=== PATIENT | female | born 1965 | race Caucasian/White ===

== ENCOUNTER 2019-09-29 14:07 | Emergency (ER) | payer OTHER, SELFPAY ==
[2019-09-29 14:21] VITALS: BP 121/85; PULSE 90; RESP 20; TEMP 36.8; O2SAT 95; BMI 20.9
[2019-09-29 15:03] VITALS: BP 122/82; PULSE 80; O2SAT 96
[2019-09-29 15:03] LABS: Basophils # 0.1 K/mm3 (0-0.2); Basophils % 0.5 % (0.1-2.0); Eosinophils # 0.3 K/mm3 (0.0-0.4); Hematocrit 48.2 % (37.0-47.0); Hemoglobin 16.7 g/dL (12.2-16.2); Lymphocytes # 1.4 K/mm3 (0.7-4.5); Lymphocytes % 11.4 % (10-50); Mean Corpuscular HGB Conc 34.6 g/dL (31.8-35.4); Mean Corpuscular Hemoglobin 32.6 pg (27.0-31.2); Mean Corpuscular Volume 94.2 fl (81-99); Mean Platelet Volume 7.7 fl (7.4-10.4); Monocytes # 0.6 K/mm3 (0.1-1.0); Monocytes % 4.6 % (1.7-9.3); Neutrophils # 10.2 K/mm3 (1.8-7.8); Neutrophils % 81.4 % (37.0-80.0); Platelet Count 354 K/mm3 (142-424); Red Blood Count 5.12 M/mm3 (4.20-5.40); Red Cell Distribution Width 13.5 % (11.5-17.5); White Blood Count 12.6 K/mm3 (4.8-10.8)
--- NOTE | 2019-09-29 15:09 | PC.NURSE ---
kasia from lab called stated that the red and green top had hemolized and that they needed to be redrawed. stated it would be a few before she could come and redraw it or hernan liu could redraw. message was given to hernan
--- NOTE | 2019-09-29 15:28 | CT_ITS ---
PROCEDURE: CT ABDOMEN PELVIS W CON CLINICAL INDICATION: abd pain Generalized abdominal, lower abdominal COMPARISON: No exams were available for comparison TECHNIQUE: IV Contrast: 75ML OPTIRAY 350 Oral Contrast None Axial images obtained with sagittal and coronal reformats. All CT scans at the facility use one or more dose reduction, viz: automated exposure control, ma/kV adjustment per patient size (including targeted exams where dose is matched to indication, i.e. head), or iterative reconstruction technique. FINDINGS: LOWER THORAX: There are centrilobular emphysematous changes. 4 mm noncalcified nodule left lower lobe posteriorly image 5 series 3. 3 mm noncalcified nodule left lower lobe laterally image 8 series 3 ABDOMEN & PELVIS: Prior cholecystectomy with biliary dilatation intra and extrahepatic. Common hepatic duct measures up to 17 mm. No calcified common duct stones are evident. No focal liver lesion apparent. There is moderate thickening of the gastric antrum and pyloric region. Spleen has an unremarkable appearance. The right adrenal gland also appears unremarkable. There is a 1.8 cm hypodense nodule of the left adrenal gland which is indeterminate measuring 28 Hounsfield units. There is mild pancreatic ductal dilatation. No obvious renal calculi. [place] mm hypodensity left kidney which may be due to renal cyst and could be confirmed with ultrasound. There is mild diffuse thickening of the colon throughout consistent with colitis. No evidence of appendicitis or diverticulitis. The uterus is enlarged with a lobular contour and multiple areas of coarse calcification consistent with fibroid involvement. No acute bony findings. IMPRESSION: 1. Three and 5 mm left lower lobe pulmonary nodule. Suggest 6 month follow-up. 2. Prior cholecystectomy with prominent biliary ductal dilatation. Consider MRCP for further evaluation. 3. Mucosal thickening of the antrum of the stomach and pyloric area with low-density changes of the mucosal thickening. Gastritis is considered. Neoplasm could have a similar appearance. Consider upper endoscopy for further evaluation. 4. Mild diffuse thickening of the colon including transverse, descending and sigmoid colon suggesting colitis. 5. Uterine fibroids Dictated by: Wesley Butler MD 09/30/2019 09:23 Electronically signed by Wesley Butler MD in [place] 09/30/2019 09:23
[2019-09-29 16:02] LABS: Microscopic, Urine URINE MICROSCOPIC (MICROSCOPIC)
[2019-09-29 16:04] VITALS: BP 121/78; PULSE 74; RESP 18; O2SAT 92
[2019-09-29 16:05] LABS: Appearance,Urine CLEAR (Clear); Bilirubin,Urine Negative (Negative); Blood, Urine Negative (Negative); Color,Urine YELLOW (Yellow); Glucose,Urine (UA) 3+ (Negative); Ketones,Urine Negative (Negative); Leukocyte Esterase,Urine Negative (Negative); Nitrate,Urine Negative (Negative); PH,Urine 6.5 (5.0-8.5); Protein,Urine Negative (Negative); Urobilinogen,Urine 0.2 EU/dl (0.2)
[2019-09-29 16:13] LABS: Bacteria,Urine Trace /lpf; Squamous Epithelial Cell,Urine Occasional #/hpf (0-5)
--- NOTE | 2019-09-29 16:19 | PC.NURSE ---
lab come to draw blood and stated that they tried 2 times to get it with no success. trying to get a red and green top
[2019-09-29 16:44] VITALS: BP 104/66; PULSE 78; RESP 16; O2SAT 93
[2019-09-29 16:48] LABS: Chloride 102 mmol/L (98-107); Potassium 3.2 mmoL/L (3.5-5.1); Sodium 134 mmol/L (136-145)
[2019-09-29 16:50] LABS: Amylase 55 U/L (30-110); Blood Urea Nitrogen 10 mg/dl (7-17); Creatinine Clearance Estimated 73 mL/min (50-200); Estimated Glomerular Filt Rate 75 ml/min (>60); GFR (African American) 90 ML/MIN (>60)
[2019-09-29 16:51] LABS: Alanine Aminotransferase 13 U/L (12-78); Albumin Level 2.9 g/dl (3.5-5.0); Albumin/Globulin Ratio 1.1 (1.1-1.8); Alkaline Phosphatase 99 U/L (38-126); Anion Gap 9.2 mEq/L (5-15); Aspartate Amino Transferase 21 U/L (14-36); Bilirubin,Total 0.4 mg/dl (0.2-1.3); Calcium 9.2 mg/dl (8.4-10.2); Carbon Dioxide 26 mmol/L (22.0-30.0); Globulin 2.7 g/dL (1.3-3.2); Glucose 123 mg/dl (74-100); Lipase 306 U/L (23-300); Total Protein,Serum 5.6 g/dl (6.3-8.2)
--- NOTE | 2019-09-29 17:17 | PC.NURSE ---
pt back from rad
--- NOTE | 2019-09-29 17:41 | HMH.EDABDPAI ---
ED Disposition Clinical Impression: Abdominal pain Disposition: Home, Self-Care Condition on Discharge: Good Instructions: DI for Acute Abdomen Prescriptions: Dicyclomine HCl [Bentyl 10mg capsule] 20 mg PO QID PRN 10 Days #40 cap PRN Reason: Abdominal Distention Transmission Status: Pending to [id number] Ondansetron [Zofran 4mg ODT] 4 mg PO TID PRN 4 Days #15 tab.rapdis PRN Reason: Nausea Transmission Status: Pending to [id number] Referrals: Lonnie Peters [Primary Care Provider] - - Critical Care Critical Care Time: No Attestation: On 09/29/19, the high probability of a clinically significant, sudden or life threatening deterioration of the following system(s) required my full and direct attention, intervention and personal management. The time I documented below is in addition to time spent performing reported procedures but includes the following listed in this critical care notation. Medical Decision Making - Medical Records Medical records reviewed: Yes: I reviewed the patient's medical records. - Kelvin Inquiry Pt receiving controlled substance: No Vital Signs: 09/29/19 14:21 09/29/19 15:03 09/29/19 16:04 Temperature 98.2 F Temperature Source Oral Pulse Rate [Left Radial] 90 80 74 Respiratory Rate 20 18 Blood Pressure [Left Arm] 121/85 122/82 121/78 Blood Pressure Mean [Left Arm] 97 95 92 Blood Pressure Source [Left Arm] Automatic Cuff Automatic Cuff Automatic Cuff Blood Pressure Position [Left Arm] Supine Supine Supine 02 Sat by Pulse Oximetry 95 96 92 L Oxygen Delivery Method Room Air Room Air Room Air 09/29/19 16:44 Temperature Temperature Source Pulse Rate [Left Radial] 78 Respiratory Rate 16 Blood Pressure [Left Arm] 104/66 L Blood Pressure Mean [Left Arm] 78 Blood Pressure Source [Left Arm] Automatic Cuff Blood Pressure Position [Left Arm] Supine 02 Sat by Pulse Oximetry 93 L Oxygen Delivery Method Room Air - Lab Data Lab results reviewed: Yes: I reviewed the patient's lab results. Lab Results 09/29/19 14:55: WBC 12.6 H, RBC 5.12, Hgb 16.7 H, Hct 48.2 H, MCV 94.2, MCH 32.6 H, MCHC 34.6, RDW 13.5, Plt Count 354, MPV 7.7, Neut % (Auto) 81.4 H, Lymph % (Auto) 11.4, [place] % (Auto) 4.6, Eos % (Auto) 2.0, Baso % (Auto) 0.5, Neut # (Auto) 10.2 H, Lymph # (Auto) 1.4, [place] # (Auto) 0.6, Eos # (Auto) 0.3, Baso # (Auto) 0.1 09/29/19 15:20: Urine Color Yellow, Urine Appearance Clear, Urine pH 6.5, Ur Specific [place] 1.010, Urine Protein Negative, Urine Glucose (UA) 3+, Urine Ketones Negative, Urine Blood Negative, Urine Nitrate Negative, Urine Bilirubin Negative, Urine Urobilinogen 0.2, Ur Leukocyte Esterase Negative, Urine RBC None, Urine WBC 3-5, Ur Squamous Epith Cells Occasional, Urine Bacteria Trace 09/29/19 16:35: Sodium 134 L, Potassium 3.2 L, Chloride 102, Carbon Dioxide 26, Anion Gap 9.2, BUN 10, Creatinine 0.80, Estimated Creat Clear 73, Estimated GFR 75, Est GFR ( Amer) 90, Glucose 123 H, Calcium 9.2, Total Bilirubin 0.4, AST 21, ALT 13, Alkaline Phosphatase 99, Total Protein 5.6 L, Albumin 2.9 L, Globulin 2.7, Albumin/Globulin Ratio 1.1, Amylase 55, Lipase 306 H Result diagrams: 09/29/19 14:55 09/29/19 16:35 Orders (Tests/Meds): ED MEDICATIONS Generic Name Dose Route Start Last Admin Trade Name Freq PRN Reason Stop Dose Admin Sodium Chloride 1,000 mls @ 999 mls/hr 09/29/19 15:30 09/29/19 15:45 Sod Chlor 0.9% 1000ml Bag IV 09/29/19 16:30 999 mls/hr .[id number] MICHAEL Administration Discontinued Medications Generic Name Dose Route Start Last Admin Trade Name Freq PRN Reason Stop Dose Admin Ioversol 75 ml 09/29/19 17:09 09/29/19 17:10 Rad-Optiray 350 100ml Vial IV 09/29/19 17:10 75 ml ONCE ONE Administration Protocol Morphine Sulfate 4 mg 09/29/19 15:45 09/29/19 15:46 Morphine 4mg/Ml Syringe IV 09/29/19 15:46 4 mg ONCE ONE Administration Ondansetron HCl 4 mg 09/29/19 15:46 09/29/19 15
[2019-09-29 17:42] VITALS: BP 109/72; PULSE 75; RESP 18; O2SAT 97
[2019-09-29 18:42] VITALS: BP 123/71; PULSE 78; RESP 16; TEMP 36.6; O2SAT 98
== END 2019-09-29 18:44 | disposition home or self-care (01) ==
PROVIDERS: Emergency Provider Family Medicine; PCP Family Medicine
DX: R10.84 Generalized abdominal pain (principal); E11.9 Type 2 diabetes mellitus without complications; Z79.84 Long term (current) use of oral hypoglycemic drugs; Z79.899 Other long term (current) drug therapy
CPT/HCPCS: 74177; 80053; 81001; 82150; 83690; 85025; 96365; 96375; 99284; J2405; Q9967

== ENCOUNTER 2019-10-02 13:16 | Observation (INO) | payer OTHER, SELFPAY ==
[2019-10-02] VITALS (16 sets, daily range): BP systolic 125–164; BP diastolic 73–106; PULSE 63–136; RESP 16–18; TEMP 36.6–37.1; O2SAT 92–98; BMI 19.3; BMI 19.7
--- NOTE | 2019-10-02 13:56 | XR_ITS ---
PROCEDURE: XR ACUTE ABDOMEN SERIES CLINICAL INDICATION: abd pain Abdominal pain and weakness COMPARISON: No exams were available for comparison FINDINGS: Frontal view of the chest was obtained showing unremarkable cardiovascular structures. No lobar consolidation or collapse is evident. There is minimal blunting of the left CP angle. Upright and supine views of the abdomen demonstrates a mild amount of retained colonic feces. The bowel gas pattern is nonspecific. Are few air-fluid levels on the right. Pelvic clips are present and there are multiple abdominal wall tacks. No acute bony anomalies. IMPRESSION: Small left pleural effusion. Nonspecific bowel gas pattern with a mild amount of retained colonic feces Dictated by: Wesley Butler MD 10/02/2019 15:07 Electronically signed by Wesley Butler MD in [place] 10/02/2019 15:07
[2019-10-02 14:23] LABS: Basophils # 0.1 K/mm3 (0-0.2); Basophils % 0.5 % (0.1-2.0); Eosinophils # 0.2 K/mm3 (0.0-0.4); Eosinophils % 1.1 % (0.1-12.0); Hematocrit 49.2 % (37.0-47.0); Hemoglobin 16.3 g/dL (12.2-16.2); Lymphocytes # 1.1 K/mm3 (0.7-4.5); Lymphocytes % 7.5 % (10-50); Mean Corpuscular HGB Conc 33.2 g/dL (31.8-35.4); Mean Corpuscular Hemoglobin 31.6 pg (27.0-31.2); Mean Corpuscular Volume 95.3 fl (81-99); Monocytes # 1.1 K/mm3 (0.1-1.0); Monocytes % 7.1 % (1.7-9.3); Neutrophils # 12.7 K/mm3 (1.8-7.8); Neutrophils % 83.9 % (37.0-80.0); Platelet Count 386 K/mm3 (142-424); Red Blood Count 5.16 M/mm3 (4.20-5.40); Red Cell Distribution Width 13.6 % (11.5-17.5); White Blood Count 15.2 K/mm3 (4.8-10.8)
[2019-10-02 14:31] LABS: MANUAL DIFFERENTIAL MANUAL DIFFERENTIAL (MANUAL DIFF)
[2019-10-02 14:36] LABS: Chloride 101 mmol/L (98-107); Potassium 3.1 mmoL/L (3.5-5.1); Sodium 136 mmol/L (136-145)
[2019-10-02 14:38] LABS: Amylase 59 U/L (30-110)
[2019-10-02 14:39] LABS: Alanine Aminotransferase 12 U/L (12-78); Albumin Level 3.5 g/dl (3.5-5.0); Albumin/Globulin Ratio 1.3 (1.1-1.8); Alkaline Phosphatase 129 U/L (38-126); Anion Gap 15.1 mEq/L (5-15); Aspartate Amino Transferase 24 U/L (14-36); Bilirubin,Total 0.6 mg/dl (0.2-1.3); Blood Urea Nitrogen 14 mg/dl (7-17); Calcium 9.9 mg/dl (8.4-10.2); Carbon Dioxide 23 mmol/L (22.0-30.0); Creatinine Clearance Estimated 67 mL/min (50-200); Estimated Glomerular Filt Rate 75 ml/min (>60); GFR (African American) 90 ML/MIN (>60); Globulin 2.8 g/dL (1.3-3.2); Glucose 135 mg/dl (74-100); Lipase 117 U/L (23-300); Total Protein,Serum 6.3 g/dl (6.3-8.2)
--- NOTE | 2019-10-02 14:40 | PC.NURSE ---
pt gone to rad
[2019-10-02 14:43] LABS: Lymphocytes % 9 % (10-50); Monocytes % 4 % (2-9); Neutrophils % 87 % (42-76); Platelet Estimate Normal; RBC Morphology Normal; Total Cells Counted 100
[2019-10-02 14:47] LABS: C-Reactive Protein 7.1 mg/L (0-4)
--- NOTE | 2019-10-02 14:50 | PC.NURSE ---
pt back from rad
--- NOTE | 2019-10-02 15:18 | HMH.EDNVD ---
ED Disposition Clinical Impression: CVA, old, alterations of sensations, Encephalomalacia, SIRS (systemic inflammatory response syndrome) Abdominal pain Qualifiers: Abdominal location: epigastric Qualified Code(s): R10.13 - Epigastric pain Disposition: Admitted as Observation Condition on Discharge: Fair Referrals: Lonnie Peters [Primary Care Provider] - - Critical Care Critical Care Time: No Attestation: On 10/02/19, the high probability of a clinically significant, sudden or life threatening deterioration of the following system(s) required my full and direct attention, intervention and personal management. The time I documented below is in addition to time spent performing reported procedures but includes the following listed in this critical care notation. Medical Decision Making - Medical Records Medical records reviewed: Yes: I reviewed the patient's medical records. - Kelvin Inquiry Pt receiving controlled substance: No Vital Signs: 10/02/19 13:17 10/02/19 13:47 10/02/19 14:26 Temperature 98 F Temperature Source Oral Pulse Rate [Left Radial] 111 H 103 H 102 H Respiratory Rate 16 18 Blood Pressure [Left Arm] 134/98 H Blood Pressure [Right Arm] 134/98 H 140/88 Blood Pressure Mean [Left Arm] 110 Blood Pressure Mean [Right Arm] 110 105 Blood Pressure Source [Left Arm] Automatic Cuff Blood Pressure Source [Right Arm] Automatic Cuff Blood Pressure Position [Left Arm] Supine Blood Pressure Position [Right Arm] Sitting Supine 02 Sat by Pulse Oximetry 98 93 L 92 L Oxygen Delivery Method Room Air Room Air Room Air 10/02/19 14:50 10/02/19 15:58 10/02/19 16:07 Temperature Temperature Source Pulse Rate [Left Radial] 109 H 68 94 H Respiratory Rate 18 Blood Pressure [Left Arm] Blood Pressure [Right Arm] 125/80 142/77 H 134/73 Blood Pressure Mean [Left Arm] Blood Pressure Mean [Right Arm] 95 98 93 Blood Pressure Source [Left Arm] Blood Pressure Source [Right Arm] Automatic Cuff Automatic Cuff Automatic Cuff Blood Pressure Position [Left Arm] Blood Pressure Position [Right Arm] Supine Supine Supine 02 Sat by Pulse Oximetry 95 96 96 Oxygen Delivery Method Room Air Room Air Room Air 10/02/19 17:33 10/02/19 18:00 10/02/19 18:30 Temperature Temperature Source Pulse Rate [Left Radial] 63 136 H 106 H Respiratory Rate 18 17 16 Blood Pressure [Left Arm] Blood Pressure [Right Arm] 148/95 H 130/90 153/99 H Blood Pressure Mean [Left Arm] Blood Pressure Mean [Right Arm] 112 103 117 Blood Pressure Source [Left Arm] Blood Pressure Source [Right Arm] Automatic Cuff Automatic Cuff Automatic Cuff Blood Pressure Position [Left Arm] Blood Pressure Position [Right Arm] Supine Supine Supine 02 Sat by Pulse Oximetry 97 95 94 L Oxygen Delivery Method Room Air Room Air Room Air 10/02/19 19:00 10/02/19 19:30 10/02/19 19:44 Temperature Temperature Source Pulse Rate [Left Radial] 103 H 100 H 96 H Respiratory Rate 16 16 16 Blood Pressure [Left Arm] Blood Pressure [Right Arm] 147/95 H 164/105 H 164/106 H Blood Pressure Mean [Left Arm] Blood Pressure Mean [Right Arm] 112 124 125 Blood Pressure Source [Left Arm] Blood Pressure Source [Right Arm] Automatic Cuff Automatic Cuff Automatic Cuff Blood Pressure Position [Left Arm] Blood Pressure Position [Right Arm] Supine Supine Sitting 02 Sat by Pulse Oximetry 98 97 97 Oxygen Delivery Method Room Air Room Air Room Air - Lab Data Lab results reviewed: Yes: I reviewed the patient's lab results. Lab Results 10/02/19 14:15: WBC 15.2 H, RBC 5.16, Hgb 16.3 H, Hct 49.2 H, MCV 95.3, MCH 31.6 H, MCHC 33.2, RDW 13.6, Plt Count 386, MPV 7.0 L, Neut % (Auto) 83.9 H, Lymph % (Auto) 7.5 L, [place] % (Auto) 7.1, Eos % (Auto) 1.1, Baso % (Auto) 0.5, Neut # (Auto) 12.7 H, Lymph # (Auto) 1.1, [place] # (Auto) 1.1 H, Eos # (Auto) 0.2, Baso # (Auto) 0.1, Total Counted 100, Neutrophils % (Manual) 87 H, Lymphocytes % (Manual) 9
--- NOTE | 2019-10-02 15:19 | CT_ITS ---
PROCEDURE: CT HEAD/BRAIN WO CON CLINICAL INDICATION: vomiting /change mental status Altered mental status, altered level of consciousness, confusion, disorientation, history of stroke COMPARISON: No exams were available for comparison TECHNIQUE: Axial images obtained. All CT scans at the facility use one or more dose reduction, viz: automated exposure control, ma/kV adjustment per patient size (including targeted exams where dose is matched to indication, i.e. head), or iterative reconstruction technique. FINDINGS: No midline shift, mass effect, intracranial hemorrhage, or hydrocephalus is evident. Encephalomalacia changes are present in the left frontal and parietal region consistent with an old infarction with also involvement of the left basal ganglia. There is some decreased attenuation involving the left cerebral peduncle inferiorly. No other significant anomalies are evident. IMPRESSION: 1. Encephalomalacia changes in the left frontal and parietal region and left basal ganglia consistent with old infarction. 2. Decreased density in the left cerebral peduncle suggesting an old lacunar infarction versus atrophic changes from the prior left sided infarction. An acute lacunar infarction is felt to be less likely but not totally excluded in this region. If symptoms pertain to this area neurologically then, MRI may provide further evaluation. Dictated by: Wesley Butler MD 10/02/2019 16:00 Electronically signed by Wesley Butler MD in [place] 10/02/2019 16:00
--- NOTE | 2019-10-02 15:25 | PC.NURSE ---
checked on pt and she was dry heaving asked nurse if she could have some zofran
--- NOTE | 2019-10-02 15:34 | PC.NURSE ---
pt going to ct
--- NOTE | 2019-10-02 15:47 | PC.NURSE ---
pt back from ct
[2019-10-02 15:52] LABS: Erythrocyte Sedimentation Rate 3 mm/hr (0-30)
[2019-10-02 16:51] LABS: Microscopic, Urine URINE MICROSCOPIC (MICROSCOPIC)
[2019-10-02 16:56] LABS: Appearance,Urine CLEAR (Clear); Blood, Urine Negative (Negative); Color,Urine YELLOW (Yellow); Glucose,Urine (UA) 3+ (Negative); Ketones,Urine 2+ (Negative); Leukocyte Esterase,Urine Negative (Negative); Nitrate,Urine Negative (Negative); PH,Urine 5.5 (5.0-8.5); Protein,Urine TRACE (Negative); Specific Gravity, Urine 1.025 (1.005-1.030); Urobilinogen,Urine 0.2 EU/dl (0.2)
[2019-10-02 16:58] LABS: Bilirubin,Urine Negative (Negative)
[2019-10-02 17:08] LABS: Phencyclidine Screen,Urine Negative ng/ml (<25)
[2019-10-02 17:09] LABS: Opiate Screen,Urine Negative ng/ml (<300)
[2019-10-02 17:10] LABS: Barbiturates Screen,Urine Negative ng/ml (<200)
[2019-10-02 17:11] LABS: Benzodiazepines Screen,Urine Negative ng/ml (<200)
[2019-10-02 17:12] LABS: Amphetamine/Metha Screen,Urine Negative ng/ml (<1000)
[2019-10-02 17:14] LABS: Cannabinoid Screen,Urine Positive ng/ml (<50)
[2019-10-02 17:15] LABS: Cocaine Screen,Urine Negative ng/ml (<300)
[2019-10-02 17:16] LABS: Bacteria,Urine 1+ /lpf; Methadone Screen,Urine Negative ng/ml (<300); Squamous Epithelial Cell,Urine Occasional #/hpf (0-5); WBC,Urine Occasional #/hpf (0-3)
--- NOTE | 2019-10-02 17:57 | PC.NURSE ---
lab called and stated that they needed a red top drawn
[2019-10-02 17:58] LABS: Coronavirus 19 IgG Antibody Negative (Negative); Coronavirus 19 IgM Antibody Negative (Negative)
[2019-10-02 18:04] LABS: Lactic Acid 1.1 mmol/L (0.7-2.1)
[2019-10-02 19:14] LABS: Troponin I 0.02 ng/ml (0.00-0.034)
[2019-10-02 19:25] LABS: Acetone, Serum (Rapid) None Detected (None Detect)
[2019-10-02 21:10] LABS: Troponin I 0.03 ng/ml (0.00-0.034)
--- NOTE | 2019-10-02 21:35 | PC.NURSE ---
PT ARRIVED TO THE FLOOR VIA W/C FROM ED AT 2134.
[2019-10-02 23:52] LABS: Troponin I 0.03 ng/ml (0.00-0.034)
[2019-10-03] VITALS (16 sets, daily range): BP systolic 114–160; BP diastolic 56–105; PULSE 90–114; RESP 16–20; TEMP 36.2–36.8; O2SAT 90–98
[2019-10-03 00:38] LABS: POC Glucose,Bedside 130 (70-110)
[2019-10-03 06:04] LABS: POC Glucose,Bedside 113 (70-110)
--- NOTE | 2019-10-03 07:01 | HMH.PHAVTE ---
[facility] Pharmacy VTE Monitoring - Patient Demographics Admission date: 10/02/19 Report Date: 10/03/19 Time: 07:01 Allergies/Adverse Reactions: Patient Allergies No Known Allergies Allergy (Verified 09/29/19 14:31) Height: 1.65 m Weight: 53.694 kg Patient Problems: Current Active Problems Abdominal pain (Acute) CVA, old, alterations of sensations (Acute) Encephalomalacia (Acute) SIRS (systemic inflammatory response syndrome) (Acute) - VTE Risk Labs: VTE Related Lab Results Hgb 16.3 g/dL (12.2-16.2) H 10/02/19 14:15 Hct 49.2 % (37.0-47.0) H 10/02/19 14:15 Plt Count 386 K/mm3 (142-424) 10/02/19 14:15 BUN 14 mg/dl (7-17) D 10/02/19 14:15 Creatinine 0.80 mg/dl (0.52-1.04) 10/02/19 14:15 Estimated Creat Clear 67 mL/min (50-200) 10/02/19 14:15 VTE Score: 2 Clinical Trial Participant: No - Prophylaxis VTE Prophylaxis Ordered?: Yes Types of VTE Prophylaxis: TEDS Knee High
[2019-10-03 07:24] LABS: Eosinophils # 0.1 K/mm3 (0.0-0.4); Hematocrit 42.1 % (37.0-47.0); Lymphocytes # 1.8 K/mm3 (0.7-4.5); Lymphocytes % 18.8 % (10-50); Red Cell Distribution Width 13.7 % (11.5-17.5)
[2019-10-03 07:27] LABS: Basophils % 0.4 % (0.1-2.0); Eosinophils % 1.3 % (0.1-12.0); Mean Corpuscular HGB Conc 35.1 g/dL (31.8-35.4); Mean Corpuscular Hemoglobin 32.5 pg (27.0-31.2); Mean Corpuscular Volume 92.8 fl (81-99); Mean Platelet Volume 7.9 fl (7.4-10.4); Monocytes # 1.1 K/mm3 (0.1-1.0); Monocytes % 11.1 % (1.7-9.3); Neutrophils # 6.7 K/mm3 (1.8-7.8); Neutrophils % 68.3 % (37.0-80.0); Platelet Count 334 K/mm3 (142-424); Red Blood Count 4.54 M/mm3 (4.20-5.40); White Blood Count 9.7 K/mm3 (4.8-10.8)
[2019-10-03 07:31] LABS: Hemoglobin 14.8 g/dL (12.2-16.2)
[2019-10-03 07:43] LABS: Chloride 108 mmol/L (98-107); Sodium 134 mmol/L (136-145)
[2019-10-03 07:44] LABS: Potassium 3.1 mmoL/L (3.5-5.1)
[2019-10-03 07:46] LABS: Blood Urea Nitrogen 14 mg/dl (7-17); Creatinine Clearance Estimated 78 mL/min (50-200); Estimated Glomerular Filt Rate 87 ml/min (>60); GFR (African American) 106 ML/MIN (>60)
[2019-10-03 07:47] LABS: Anion Gap 10.1 mEq/L (5-15); Carbon Dioxide 19 mmol/L (22.0-30.0); Glucose 127 mg/dl (74-100)
--- NOTE | 2019-10-03 07:54 | PC.NURSE ---
PT RESTED WELL WITH EYES CLOSED THIS SHIFT. A&O X4, PT UNABLE TO VERBALLY ANSWER QUESTIONS DUE TO PREVIOUS CVA X2. SHE DOES WELL WITH YES OR NO STYLE QUESTIONS. IS AT BEDSIDE AND ABLE TO COMMUNICATE WELL WITH/FOR HER. TOLERATED RA WELL WITH NO C/O SOA. DENIES ABDOMINAL PAIN. DENIES N/V/D. NO ABDOMINAL TENDERNESS NOTED WITH PALPATION UPON INITIAL ASSESSMENT. NPO SINCE 0000 FOR GENERAL SX CONSULT THIS AM. PT'S STATED UPON ADMISSION THAT SHE HAS NOT HAD AN APPETITE FOR OVER 2 WEEKS AND HAS HAD DIFFICULTY CHEWING SOFTER FOODS SUCH TOAST. VSS WITH TACHYCARDIA NOTED. HR SUSTAINED BETWEEN 90-130 MAJORITY OF SHIFT, ASYMPTOMATIC. STATES SHE HAS BEEN TOLD DURING PRIOR HOSPITAL STAYS THAT HER HR IS HIGH. REMAINS SAFE. CALL LIGHT WITHIN REACH. WILL CONTINUE TO MONITOR.
[2019-10-03 07:57] LABS: Calcium 8.9 mg/dl (8.4-10.2)
--- NOTE | 2019-10-03 08:20 | HMH.GSCON ---
*Admission Date: 10/02/19 *Reason for consult:: Epigastric pain; nausea *History of present illness: This is a 54-year-old female seen in consultation from the service of Dr. Navarrete for evaluation regarding epigastric pain and nausea. Over the past few weeks she has had decreased food intake with associated weight loss. She also has some associated weakness. Nausea and left upper abdominal pain/epigastric pain has also been noted. A recent CT scan at this facility did reveal some changes consistent with possible gastritis versus neoplasm. Review of Systems - Review of Systems Review of systems:: unable to obtain - *Neurologic Denies localized weakness, Denies seizure-like activity [facility] History Medical History: Reports:: Diabetes Mellitus Type 2, Hyperlipidemia, Hypertension, Myocardial Infarction Denies:: Cancer, Diabetes Mellitus Type 1, MRSA *Have you ever received a pneumonia vaccine?: Yes *Have you received a flu vaccine this season?: Yes Other Surgeries: Yes: Cholecystectomy (), EGD, Hernia Repair, Tubal Ligation Amputation: No Fractures: No - *Social History Last grade of school completed: GED Smoking Status: Current every day smoker Tobacco Type: cigarettes # Packs/Day (cigarettes): 6 Alcohol Intake: never Substance Use Type: marijuana Last Used Substance: unknown *Occupational Status:: previously employed Housing: house Household Members: spouse *Travel in the last 8 weeks: None Family Hx:: Coronary Artery Disease, Diabetes, Heart Attack, Hypertension, Stroke Meds Home Medications Medication Instructions Recorded Confirmed Type ALPRAZolam [Xanax 1mg tab] 1 mg PO DAILY PRN 09/29/19 10/03/19 History Aspirin [Aspirin 81mg EC Tab] 81 mg PO DAILY 09/29/19 10/02/19 History Atorvastatin Calcium [Lipitor 10mg 80 mg PO HS 09/29/19 10/02/19 History Tab] Clopidogrel Bisulfate [Clopidogrel 75 mg PO DAILY 09/29/19 10/02/19 History 75mg Tab] Dapagliflozin Propanediol [Farxiga] 10 mg PO DAILY 09/29/19 10/02/19 History Insulin Glargine,Hum.rec.anlog 10 unit SQ HS 09/29/19 10/02/19 History [Lantus] Metoprolol Succinate [Metoprolol 50 mg PO DAILY 09/29/19 10/02/19 History Succinate 50mg Tablet*] Ondansetron [Zofran 4mg ODT] 4 mg PO TID PRN 4 Days #15 09/29/19 10/02/19 Rx tab.rapdis Pantoprazole Sodium [Pantoprazole 40 mg PO DAILY 09/29/19 10/02/19 History 20mg Tab] Pioglitazone HCl 30 mg PO DAILY 09/29/19 10/02/19 History Potassium Chloride 20 meq PO DAILY 09/29/19 10/02/19 History Semaglutide [Ozempic] 2 mg SQ WEEKLY 09/29/19 10/03/19 History Simethicone [Gas-X] 125 mg PO DAILY 10/02/19 10/02/19 History Cyproheptadine HCl 4 mg PO TID 10/03/19 10/03/19 History Dicyclomine HCl [Bentyl 10mg 20 mg PO QID PRN 10/03/19 10/03/19 History capsule] Allergies Allergy/AdvReac Type Severity Reaction Status Date / Time No Known Allergies Allergy Verified 09/29/19 14:31 Exam Vital signs and Labs for Last 24 Hours: Temp Pulse Resp BP Pulse Ox 98.3 F 90 16 129/80 94 L 10/03/19 03:52 10/03/19 04:00 10/03/19 03:52 10/03/19 03:52 10/03/19 03:52 Laboratory Results - last 24 hr 10/02/19 14:15: WBC 15.2 H, RBC 5.16, Hgb 16.3 H, Hct 49.2 H, MCV 95.3, MCH 31.6 H, MCHC 33.2, RDW 13.6, Plt Count 386, MPV 7.0 L, Neut % (Auto) 83.9 H, Lymph % (Auto) 7.5 L, [place] % (Auto) 7.1, Eos % (Auto) 1.1, Baso % (Auto) 0.5, Neut # (Auto) 12.7 H, Lymph # (Auto) 1.1, [place] # (Auto) 1.1 H, Eos # (Auto) 0.2, Baso # (Auto) 0.1, Total Counted 100, Neutrophils % (Manual) 87 H, Lymphocytes % (Manual) 9 L, Monocytes % (Manual) 4, Platelet Estimate Normal, RBC Morphology Normal, ESR 3 10/02/19 14:15: Sodium 136, Potassium 3.1 L, Chloride 101, Carbon Dioxide 23, Anion Gap 15.1 H, BUN 14 D, Creatinine 0.80, Estimated Creat Clear 67, Estimated GFR 75, Est GFR ( Amer) 90, Glucose 135 H, Calcium 9.9, Total Bilirubin 0.6, AST 24, ALT 12, Alkaline Phosphatase 129 H, C-Reactive Protein 7.1 H, T
--- NOTE | 2019-10-03 10:16 | HMH.HP ---
*Admission Date: 10/02/19 *Chief complaint: abd pain *History of present illness: pt with progressive abd pain in upper abd area with episodes of nausea and vomiting - reported wt loss - was seen in the ed a few days ago and was seen by gi and concerned about dehydration - pt was eval in the ed and will be admitted for treatment and eval [facility] History I have reviewed the patient's past medical history: Yes Medical History: Reports:: Diabetes Mellitus Type 2, Hyperlipidemia, Hypertension, Myocardial Infarction Denies:: Cancer, Diabetes Mellitus Type 1, MRSA *Have you ever received a pneumonia vaccine?: Yes *Have you received a flu vaccine this season?: Yes Other Surgeries: Yes: Cholecystectomy (), EGD, Hernia Repair, Tubal Ligation Amputation: No Fractures: No - *Social History Last grade of school completed: GED Smoking Status: Current every day smoker Tobacco Type: cigarettes # Packs/Day (cigarettes): 6 Alcohol Intake: never Substance Use Type: marijuana Last Used Substance: unknown *Occupational Status:: previously employed Housing: house Household Members: spouse *Travel in the last 8 weeks: None Family Hx:: Coronary Artery Disease, Diabetes, Heart Attack, Hypertension, Stroke Review of Systems - Review of Systems Review of systems:: pertinent systems reviewed and negative unless documented below - Constitutional Denies fever(s) - Eyes Denies change in vision - ENT Denies sore throat - *Cardiovascular Denies chest pain at rest, Denies shortness of breath - *Respiratory Denies cough - *Gastrointestinal Reports abdominal pain - *Genitourinary Denies painful urination - *Musculoskeletal Denies joint pain - Integumentary/Breasts Denies rash - *Neurologic Denies localized weakness, Denies seizure-like activity - Psychiatric Denies anxiety, Denies confusion Meds Home Medications Medication Instructions Recorded Confirmed Type ALPRAZolam [Xanax 1mg tab] 1 mg PO DAILY PRN 09/29/19 10/03/19 History Aspirin [Aspirin 81mg EC Tab] 81 mg PO DAILY 09/29/19 10/02/19 History Atorvastatin Calcium [Lipitor 10mg 80 mg PO HS 09/29/19 10/02/19 History Tab] Clopidogrel Bisulfate [Clopidogrel 75 mg PO DAILY 09/29/19 10/02/19 History 75mg Tab] Dapagliflozin Propanediol [Farxiga] 10 mg PO DAILY 09/29/19 10/02/19 History Insulin Glargine,Hum.rec.anlog 10 unit SQ HS 09/29/19 10/02/19 History [Lantus] Metoprolol Succinate [Metoprolol 50 mg PO DAILY 09/29/19 10/02/19 History Succinate 50mg Tablet*] Ondansetron [Zofran 4mg ODT] 4 mg PO TID PRN 4 Days #15 09/29/19 10/02/19 Rx tab.rapdis Pantoprazole Sodium [Pantoprazole 40 mg PO DAILY 09/29/19 10/02/19 History 20mg Tab] Pioglitazone HCl 30 mg PO DAILY 09/29/19 10/02/19 History Potassium Chloride 20 meq PO DAILY 09/29/19 10/02/19 History Semaglutide [Ozempic] 1.5 ml SQ WEEKLY 09/29/19 10/03/19 History Simethicone [Gas-X] 125 mg PO DAILY 10/02/19 10/02/19 History Amitriptyline HCl [Elavil 25mg 25 mg PO HS 10/03/19 10/03/19 History tablet] Cyproheptadine HCl 4 mg PO TID 10/03/19 10/03/19 History Dicyclomine HCl [Bentyl 10mg 20 mg PO QID PRN 10/03/19 10/03/19 History capsule] Naproxen [Naproxen 500mg tab] 500 mg PO BID 10/03/19 10/03/19 History Allergies Allergy/AdvReac Type Severity Reaction Status Date / Time No Known Allergies Allergy Verified 09/29/19 14:31 Exam Vital signs and Labs for Last 24 Hours: Temp Pulse Resp BP Pulse Ox 98.3 F 104 H 20 118/84 90 L 10/03/19 08:00 10/03/19 08:00 10/03/19 08:00 10/03/19 08:00 10/03/19 08:00 Laboratory Results - last 24 hr 10/02/19 14:15: WBC 15.2 H, RBC 5.16, Hgb 16.3 H, Hct 49.2 H, MCV 95.3, MCH 31.6 H, MCHC 33.2, RDW 13.6, Plt Count 386, MPV 7.0 L, Neut % (Auto) 83.9 H, Lymph % (Auto) 7.5 L, [place] % (Auto) 7.1, Eos % (Auto) 1.1, Baso % (Auto) 0.5, Neut # (Auto) 12.7 H, Lymph # (Auto) 1.1, [place] # (Auto) 1.1 H, Eos # (Auto) 0.2, B
--- NOTE | 2019-10-03 10:33 | P.PN_ITS ---
[facility] Anesthesia Checklist - Patient Identification Patient Identification: Arm Band - Structural Data Admitted From: Home Planned Operative Procedure/s: egd Consent for Planned Operative Procedure(s) Verified: Yes Verified Documents: Surgical Consent, History and Physical - NPO Status Verified Time NPO: 00:00 - Additional verifications Anesthesia Reactions: No - Airway Assessment C-Spine Mobility Assessed: Yes (mp2) TMJ Mobility Assessed: Yes Dentition: Poor Dentition - Neurological Assessment Level of Consciousness: Awake, Alert - Anesthesia Plan Anesthesia Risk discussed: Yes Anesthesia Plan: Verified ASA Class: III Anesthesia Type: MAC [facility] History I have reviewed the patient's past medical history: Yes Medical History: Reports:: Cerebrovascular Accident, Diabetes Mellitus Type 2, Hyperlipidemia, Hypertension, Myocardial Infarction Denies:: Cancer, Diabetes Mellitus Type 1, MRSA *Have you ever received a pneumonia vaccine?: Yes *Have you received a flu vaccine this season?: Yes Anesthesia experience/problems:: nac Other Surgeries: Yes: Cholecystectomy (), EGD, Hernia Repair, Tubal Ligation Amputation: No Fractures: No - *Social History Last grade of school completed: GED Smoking Status: Current every day smoker Tobacco Type: cigarettes # Packs/Day (cigarettes): 6 Alcohol Intake: never Substance Use Type: marijuana Last Used Substance: unknown *Occupational Status:: previously employed Housing: house Household Members: spouse *Travel in the last 8 weeks: None Family Hx:: Coronary Artery Disease, Diabetes, Heart Attack, Hypertension, Stroke
--- NOTE | 2019-10-03 10:36 | FL_ITS ---
PROCEDURE: FL UPPER GI SMALL BOWEL CLINICAL INDICATION: epigastric pain; nausea COMPARISON: No exams were available for comparison TECHNIQUE: FLUOROSCOPY TIME : 2 minutes and 55 seconds FINDINGS: Esophagus, stomach, and duodenum have an unremarkable appearance. No annular constricting lesions or masses are evident. No ulcerative lesions. Pm Head Cook exam shows surgical clips in the right upper quadrant as well as multiple abdominal wall tacks and bilateral tubal ligation clips Small bowel is unremarkable. No dilatation, obstructing lesions, or mucosal abnormalities are evident. Transit time is somewhat delayed region large bowel by 4 hours. IMPRESSION: Unremarkable upper GI. Mild delayed transit time otherwise negative small bowel follow-through Dictated by: Wesley Butler MD 10/03/2019 19:01 Electronically signed by Wesley Butler MD in [place] 10/03/2019 19:01
--- NOTE | 2019-10-03 10:36 | HMH.PHAINT ---
MEDICATION RECONCILIATION COMPLETED USING EXTERNAL FILL HISTORY AND PHARMACY.
--- NOTE | 2019-10-03 10:36 | HMH.SCOPE ---
- Procedure: Date: 10/03/19 Procedure Performed:: Esophagogastroduodenoscopy with biopsy Indications:: Epigastric pain Nausea Recent CT scan showing changes consistent with possible gastritis versus neoplasm Performing Provider:: Gee Sarah MD Referring Provider:: Dr. Navarrete Sedation:: Monitored anesthesia care Procedure:: After informed consent was obtained the patient was taken to the endoscopy suite. Sedation ensued after the patient was transferred to the left lateral decubitus position. Pulse, blood pressure, and oxygen saturation were monitored throughout the procedure. The endoscope was advanced beyond the duodenal bulb. Retroflexion within the gastric lumen was accomplished. The gastroscope was carefully removed and the patient was transferred to recovery in stable condition. Please see findings and specimens below for detail. Findings:: Gastroesophageal junction at 38 cm Sliding hiatal hernia High arcing fundus versus small shallow paraesophageal hernia Moderate gastritis Small bowel mucosa relatively normal Specimens:: Antral biopsy Recommendations:: Follow-up pathology Continue PPI Small bowel follow-through ordered Consider gastric emptying scan Possible gastroenterology consultation Complications:: No immediate Estimated blood obtained (mL): 1
--- NOTE | 2019-10-03 10:54 | SUR.PHASEII ---
[id number] Report called to Bella Hameed RN on med/surg floor. Transport to floor.
[2019-10-03 11:42] LABS: POC Glucose,Bedside 135 (70-110)
[2019-10-03 17:34] LABS: POC Glucose,Bedside 124 (70-110)
--- NOTE | 2019-10-03 20:03 | PC.NURSE ---
PT IS SITTING UP IN CHAIR. NO COMPLAINTS OF DISCOMFORT. TOLERATING FULL LIQUIDS. PT HAS RT SIDED WEAKNESS AND FACIAL DROOPING FROM CVA IN THE PAST. PT WAS ABLE TO TOLERATE AMBULATING IN THE BERRY AND TO THE BATHROOM. PT IS UNABLE TO COMMUNICATE VERBALLY BUT UNDERSTANDS AND DOES NOT HAVE ANY ISSUES WITH HEARING ACCORDING TO . ROUNDED ON PT THIS EVENING AND STATED IT WOULD BE OKAY FOR PT TO BE DISCHARGED HOME.
--- NOTE | 2019-10-03 20:15 | HMH.DCSUM ---
General - General Admission date:: 10/02/19 Discharge date: 10/03/19 HPI HPI: pt with progressive abd pain in upper abd area with episodes of nausea and vomiting - reported wt loss - was seen in the ed a few days ago and was seen by gi and concerned about dehydration - pt was eval in the ed and will be admitted for treatment and eval Hospital Course Hospital Course: pt was admitted and did better on reglan - pt was seen by surg- This is a 54-year-old female seen in consultation from the service of Dr. Navarrete for evaluation regarding epigastric pain and nausea. Over the past few weeks she has had decreased food intake with associated weight loss. She also has some associated weakness. Nausea and left upper abdominal pain/epigastric pain has also been noted. A recent CT scan at this facility did reveal some changes consistent with possible gastritis versus neoplasm. c cT scan from earlier this month: IMPRESSION: 1. Three and 5 mm left lower lobe pulmonary nodule. Suggest 6 month follow-up. 2. Prior cholecystectomy with prominent biliary ductal dilatation. Consider MRCP for further evaluation. 3. Mucosal thickening of the antrum of the stomach and pyloric area with low-density changes of the mucosal thickening. Gastritis is considered. Neoplasm could have a similar appearance. Consider upper endoscopy for further evaluation. 4. Mild diffuse thickening of the colon including transverse, descending and sigmoid colon suggesting colitis. 5. Uterine fibroids rocedure Performed:: Esophagogastroduodenoscopy with biopsy Indications:: Epigastric pain Nausea Recent CT scan showing changes consistent with possible gastritis versus neoplasm Performing Provider:: Gee Sarah MD Referring Provider:: Dr. Navarrete Sedation:: Monitored anesthesia care Procedure:: After informed consent was obtained the patient was taken to the endoscopy suite. Sedation ensued after the patient was transferred to the left lateral decubitus position. Pulse, blood pressure, and oxygen saturation were monitored throughout the procedure. The endoscope was advanced beyond the duodenal bulb. Retroflexion within the gastric lumen was accomplished. The gastroscope was carefully removed and the patient was transferred to recovery in stable condition. Please see findings and specimens below for detail. Findings:: Gastroesophageal junction at 38 cm Sliding hiatal hernia High arcing fundus versus small shallow paraesophageal hernia Moderate gastritis Small bowel mucosa relatively normal Specimens:: Antral biopsy Recommendations:: Follow-up pathology Continue PPI Small bowel follow-through ordered pt has less pain and tolerated diet and wished to go home now - we discussed all the finding and she has hiatial hernia-and element of gastroparesis and gastritis - we discussed diet and meds and need to follow up with pcp and gi Objective Vital signs: Temp Pulse Resp BP Pulse Ox 97.9 F 97 H 20 152/95 H 98 10/03/19 16:00 10/03/19 16:00 10/03/19 16:00 10/03/19 16:00 10/03/19 16:00 no acute distress - *Routine HEENT Exam Head: Present: normocephalic Eye: Present: EOMI, PERRL. Absent: conjunctival icterus ENT: Present: mucous membranes dry - *Routine Neck Exam Present: supple - *Routine Respiratory Exam Absent: respiratory distress - *Routine Cardiovascular Exam Present: RRR - *Routine Abdominal Exam Present: soft - *Routine Extremities Exam Absent: calf tenderness - *Routine Skin Exam Present: intact - *Routine Neurological Exam Present: alert, facial asymmetry - Routine Psychiatric Exam Present: cooperative Results Labs on day of discharge: Labs from last 24 hours 10/03/19 10/03/19 10/03/19 17:06 11:28 06:44 WBC RBC Hgb Hct MCV MCH MCHC RDW Plt Count MPV Neut % (Auto) Lymph % (Auto) [place] % (Auto) Eos % (
--- NOTE | 2019-10-03 21:48 | PC.NURSE ---
Prev. shift RN removed pt's IV and instructed her and her to wait for this RN to bring d/c packet once it was completed by MD Navarrete. Pt's had walking in the hallway and while staff was in another room, they left the floor without reviewing d/c information. Pt has only 1 phone number listed, which is also the phone number listed for pt's spouse and their emergency contact #. This RN called 2x and left a voicemail on the number listed. They did not return the phone call thus far. Pt was also insxtructed to call Dr. Navarrete for follow up on 10/03 in the am. maintenance mechanic supervisor Ameena Campos RN was notified
== END 2019-10-03 21:48 | disposition home or self-care (01) ==
LOC: ER 14:23 → 2ND 19:56
PROVIDERS: Surgery; Admitting Provider Emergency Medicine; Emergency Provider Emergency Medicine; PCP Family Medicine; Visit Provider Emergency Medicine
PROC: 0DJ08ZZ Inspection of Upper Intestinal Tract, Via Natural or Artificial Opening Endoscopic (ICD-10-PCS; CPT 43235; principal; 2019-10-03 10:00)
DX: R10.13 Epigastric pain (principal); I10 Essential (primary) hypertension; E11.9 Type 2 diabetes mellitus without complications; R65.10 Systemic inflammatory response syndrome (SIRS) of non-infectious origin without acute organ dysfunction; I69.398 Other sequelae of cerebral infarction; I25.10 Atherosclerotic heart disease of native coronary artery without angina pectoris; I25.2 Old myocardial infarction; Z72.0 Tobacco use; Z79.4 Long term (current) use of insulin; Z79.01 Long term (current) use of anticoagulants; Z79.82 Long term (current) use of aspirin; Z79.899 Other long term (current) drug therapy
CPT/HCPCS: 43239; 36415; 70450; 74021; 74246; 74248; 80048; 80053; 80305; 81001; 82009; 82150; 82962; 83605; 83690; 84484; 85007; 85025; 85651; 86140; 86328; 87040; 96365; 96374; 96375; 99285; G0378; J2405